=== PATIENT | female | born 1980 | race Caucasian/White ===

== ENCOUNTER 2017-07-26 10:52 | Emergency (ER) | payer MEDICAID ==
--- NOTE | 2017-07-26 12:08 | PD ---
HPI Chief Complaint spotting Date Seen: July 26, 2017 Time Seen: 12:01 Travel History International Travel<30 Days: No Contact w/Intl Traveler<30Days: No Known Affected Area: No History of Present Illness HPI Pt is a 36y/o @ 17.4wks. She has PNC in [place]. She states that she has had recent spotting (pink) and sex on . She also had spotting earlier in her and she was told it would likely recur. Pt has some cramping and a h/o SAB x2 and was concerned. +FM. Weeks Gestation: 17 Para: 1 : 5 History Past Medical History Medical History: Denies Significant Hx Obstetric History Obstetric History SAB x2 (1st TM) TAB x1 CS x1 (failure to progress) Past Surgical History Narrative Surgical CS (2010) inguinal hernia repair (age 2) Family History Family History: Negative Social History Alcohol Use: No Tobacco Use: No Substance Abuse: No Allergies-Medications Narrative Medication PNVs Review of Systems Except as stated in HPI: all other systems reviewed are Neg Physical Exam Narrative General: well developed, well nourished, no acute distress HEENT: normocephalic atraumatic, extraocular movements intact, neck supple Abdomen: soft, gravid, nontender, nondistended Uterus: fundus _ Extremities: full range of motion Skin: normal coloration, no rashes, no suspicious skin lesions noted Neurologic: cranial nerves 2-12 grossly intact, normal muscle tone, normal gait Psychiatric: normal mood and affect, appropriate Bedside US: sIUP, breech, +FM/FCA, posterior placenta ?low lying, no discernible cervix seen FHTs: present [place]: quiet Cvx: fingertip/80/-3, soft, posterior; brown watery blood on glove with small clot (1cm) Data Data Vital Signs Reviewed: Yes Orders Orders Vital Signs (Adult) .ON ADMISSION (07/26/17 12:00) ^ Labor Status (07/26/17 12:00) Heart (07/26/17 12:00) Urinalysis - C+S If Indicated (07/26/17 12:00) Us Pelvis Preg W Transvaginal (07/26/17 ) MDM Plan 36y/o @ 17.4wks with spotting, h/o CSx1, h/o SAB x2, h/o TAB x1, AMA. -- bedside US without evidence of previa -- cvx exam with concerns for insufficiency -- UA with +blood and +LE (no nitrites) Dispo: TVUS ordered; consider cerclage pending results Diagnosis Diagnosis: Primary Impression: 17 weeks gestation of Additional Impressions: Vaginal bleeding in patient at less than 20 weeks gestation Cervical insufficiency during in second trimester, antepartum History of section AMA (advanced maternal age) multigravida 35+ Fredis Hernandez MD July 26, 2017 12:08
[2017-07-26 12:21] LABS: BACTERIA, URINE FEW /hpf; BILIRUBIN, URINE NEG (NEG); BLOOD, URINE MOD (NEG); GLUCOSE,URINE NEG (NEG); KETONE, URINE NEG (NEG); NITRITE,URINE NEG (NEG); SQUAMOUS EPITHELIAL CELL URINE 3 /hpf (0-5); URINE COLOR LIGHT-YELLOW (YELLW/STRAW); URINE LEUKOCYTE ESTERASE LARGE (NEG)
[2017-07-27] MEDS ORDERED: PREN29TA PO ×2 (16:01)
== END 2017-07-26 14:05 | disposition home or self-care (01) ==
LOC: HOBED 10:52
DX: O44.12 Complete placenta previa with hemorrhage, second trimester (principal); O34.32 Maternal care for cervical incompetence, second trimester; O09.522 Supervision of elderly multigravida, second trimester; Z3A.17 17 weeks gestation of pregnancy
CPT/HCPCS: 76805; 76815; 81001; 87086

== ENCOUNTER 2017-07-27 14:46 | Observation (INO) | payer MEDICAID ==
[~2017-07-27] VITALS: Ht 177.8 cm; Wt 63.5 kg
--- NOTE | 2017-07-27 15:31 | HHI.HP ---
History & Physical H&P OB ED Note (Detail) Patient Name: Yossi Dwyer Unit Number: [id number] Date of : 1980 Patient Status: Registered Emergency Room Attending Doctor: Fredis Hernandez MD HPI Chief Complaint spotting Date Seen: July 27, 2017 Time Seen: 1524 Travel History International Travel<30 Days: No Contact w/Intl Traveler<30Days: No Known Affected Area: No History of Present Illness HPI Pt is a 36y/o @ 17.4wksPCS . She has PNC in [place]. She she was here yesterday for spotting and was evaluated by Dr. Hernandez was found to have a transvaginal ultrasound showing placenta previa but the cervical length was 5 cm and she has no history of cervical insufficiency or second trimester loss. She was discharged yesterday to bedrest at home she did that because she got up today to just normal activity for a little while and noticed a gush of blood. She also had spotting earlier in her and she was told it would likely recur. Pt has some cramping and a h/o SAB x2 and was concerned. +FM. Weeks Gestation: 17 Para: 1 : 5 History Past Medical History Medical History: Denies Significant Hx Obstetric History Obstetric History SAB x2 (1st TM) TAB x1 CS x1 (failure to progress) Past Surgical History Narrative Surgical CS (2010) inguinal hernia repair (age 2) Family History Family History: Negative Social History Alcohol Use: No Tobacco Use: No Substance Abuse: No Allergies-Medications Narrative Medication PNVs Review of Systems Except as stated in HPI: all other systems reviewed are Neg Physical Exam Narrative General: well developed, well nourished, no acute distress HEENT: normocephalic atraumatic, extraocular movements intact, neck supple Abdomen: soft, gravid, nontender, nondistended Uterus: fundus _ Extremities: full range of motion Skin: normal coloration, no rashes, no suspicious skin lesions noted Neurologic: cranial nerves 2-12 grossly intact, normal muscle tone, normal gait Psychiatric: normal mood and affect, appropriate FHTs: present [place]: quiet Cvx: Closed, uneffaced with small amount of dark blood oozing from the external loss and there is a small amount of dark red blood in the posterior fornix of vagina Data Data Vital Signs Reviewed: Yes Orders Orders Vital Signs (Adult) .ON ADMISSION (07/26/17 12:00) ^ Labor Status (07/26/17 12:00) Heart (07/26/17 12:00) Urinalysis - C+S If Indicated (07/26/17 12:00) Us Pelvis Preg W Transvaginal (07/26/17 ) MDM Plan 36y/o @ 17.4wks with 2 nd trimester bleeding with documented placenta previa done by transvaginal ultrasound yesterday, h/o CSx1, h/o SAB x2, h/o TAB x1, AMA. -- - -- UA with +blood and +LE (no nitrites) Diagnosis Diagnosis: Primary Impression: 17 weeks gestation of Additional Impressions: Vaginal bleeding in patient at less than 20 weeks gestation Placenta previa during in second trimester, antepartum History of section AMA (advanced maternal age) multigravida 35+ Impression-second trimester bleeding and 17 week intrauterine with placenta previa diagnosed yesterday on transvaginal ultrasound. That ultrasound showed cervical length of 5 cm Plan-admit to observation to observe for any heavy bleeding, check CBC, type and screen We will began a p.o. antibiotic for UTI seen on yesterday's UA . Antonio Benítez II, MD July 27, 2017 15:31
[2017-07-27] MEDS ORDERED: ALUMINUM/MAGNESIUM/SIMETH 30 ML CUP PO PRN (15:45)
[2017-07-27] MEDS ORDERED: ONDANSETRON ODT 4 MG TAB PO PRN (15:45)
[2017-07-27] MEDS ORDERED: SODIUM CHLORIDE 0.9% FLUSH 10 ML FLUSH IV FLUSH PRN (15:45)
[2017-07-27] MEDS ORDERED: PREN29TA PO ×2 (16:01)
[2017-07-27 16:50] LABS: AUTOMATED NEUTROPHIL # 15.1 TH/MM3 (1.8-7.7); BASOPHIL % 0.1 % (0.0-2.0); EOSINOPHIL # 0.1 TH/MM3 (0-0.4); EOSINOPHIL % 0.8 % (0.0-4.0); HEMATOCRIT 33.4 % (35.0-46.0); HEMOGLOBIN 11.2 GM/DL (11.6-15.3); LYMPH % 7.4 % (9.0-44.0); LYMPHOCYTE # 1.3 TH/MM3 (1.0-4.8); MEAN CELL VOLUME 88.2 FL (80.0-100.0); MEAN CORPUSCULAR HEMOGLOBIN 29.7 PG (27.0-34.0); MEAN CORPUSCULAR HGB CONC 33.6 % (32.0-36.0); MEAN PLATELET VOLUME 7.9 FL (7.0-11.0); MONO % 5.8 % (0.0-8.0); NEUT % 85.9 % (16.0-70.0); PLATELET COUNT 307 TH/MM3 (150-450); RED BLOOD COUNT 3.79 MIL/MM3 (4.00-5.30); RED CELL DISTRIBUTION WIDTH 13.4 % (11.6-17.2); WHITE BLOOD COUNT 17.6 TH/MM3 (4.0-11.0)
[2017-07-27] MEDS ORDERED: ACETAMINOPHEN 325 MG TAB PO PRN (19:45)
[2017-07-27] MEDS ORDERED: ZOLPIDEM TARTRATE 5 MG TAB PO PRN (21:00)
[2017-07-27] MEDS: SULFAMETHOXAZOLE-TRIMETHOPRIM DS 800-160 MG TAB PO SCH (21:37)
[2017-07-27] MEDS: FERROUS SULFATE 325 MG (65 MG ELEMENTAL IRON) TAB PO SCH (21:37)
[2017-07-27] MEDS: SODIUM CHLORIDE 0.9% FLUSH 10 ML FLUSH IV FLUSH SCH (21:38)
--- NOTE | 2017-07-28 08:56 | PD.OB.ANTE ---
Subjective Interval History Patient is a 36 yo F at 17/6 weeks gestation with placental previa and initial c/o of vaginal bleeding. Patient seen and examined this am. Reports improvement of vaginal bleeding, less the a period and slight vaginal bleeding note when she urinates. Patient also reports less frequency and intensity of cramps and contractions. Endorses movement. No CP, SOB, fever, or chills. Patient is tolerating po well. Antepartum ROS: Reports: Vaginal bleeding (improved, less than period), movement normal, Denies: New complaints, Loss of fluid, Contractions Objective Lab & Micro Results Test 07/27/17 15:52 07/27/17 16:00 White Blood Count 17.6 TH/MM3 Red Blood Count 3.79 MIL/MM3 Hemoglobin 11.2 GM/DL Hematocrit 33.4 % Mean Corpuscular Volume 88.2 FL Mean Corpuscular Hemoglobin 29.7 PG Mean Corpuscular Hemoglobin Concent 33.6 % Red Cell Distribution Width 13.4 % Platelet Count 307 TH/MM3 Mean Platelet Volume 7.9 FL Neutrophils (%) (Auto) 85.9 % Lymphocytes (%) (Auto) 7.4 % Monocytes (%) (Auto) 5.8 % Eosinophils (%) (Auto) 0.8 % Basophils (%) (Auto) 0.1 % Neutrophils # (Auto) 15.1 TH/MM3 Lymphocytes # (Auto) 1.3 TH/MM3 Monocytes # (Auto) 1.0 TH/MM3 Eosinophils # (Auto) 0.1 TH/MM3 Basophils # (Auto) 0.0 TH/MM3 CBC Comment DIFF FINAL Differential Comment Urine Opiates Screen NEG Urine Barbiturates Screen NEG Urine Amphetamines Screen NEG Urine Benzodiazepines Screen NEG Urine Cocaine Screen NEG Urine Cannabinoids Screen NEG Physical Exam GENERAL: Well-nourished, well-developed patient. CARDIOVASCULAR: Regular rate and rhythm without murmurs, gallops, or rubs. RESPIRATORY: Breath sounds equal bilaterally. No accessory muscle use. ABDOMEN/GI: Gravid, abdomen soft, non-tender. GENITOURINARY: External Genitalia: intact and normal in appearance Membranes: intact Uterine Contractions: minimal scattered contractions noted FHT's: 150 EXTREMITIES: No cyanosis or edema, non-tender, without signs of DVT. Assessment and Plan Problem List: (1) 17 weeks gestation of ICD Codes: Z3A.17 - 17 weeks gestation of (2) Placenta previa ICD Codes: O44.00 - Complete placenta previa NOS or without hemorrhage, unspecified trimester Qualifiers: Qualified Codes: O44.02 - Complete placenta previa nos or without hemorrhage , second trimester Assessment and Plan 36 year old at 17/6 weeks gestation with placenta previa that presented to OB triage with c/o on vaginal bleeding and cramping. Patient admitted for observation. IUP at 17 weeks gestation - AFVSS - f/u repeat cbc - improved vaginal bleeding, less than period - cervical length at 5cm -c/w UTI treatment with bactrim - plan to continue monitoring for cessation of vaginal bleeding DW Sandhya Bautista MD, R1 July 28, 2017 08:56
[2017-07-28] MEDS ORDERED: MULTIVIT/MIN/PREN/FOL AC/IRON PRENATAL TAB PO SCH (09:00)
[2017-07-28] MEDS: SODIUM CHLORIDE 0.9% FLUSH 10 ML FLUSH IV FLUSH SCH (09:00)
[2017-07-28] MEDS ORDERED: DOCUSATE SODIUM 100 MG CAP PO SCH (09:00)
[2017-07-28 09:19] LABS: AUTOMATED NEUTROPHIL # 15.1 TH/MM3 (1.8-7.7); EOSINOPHIL # 0.1 TH/MM3 (0-0.4); EOSINOPHIL % 0.5 % (0.0-4.0); HEMATOCRIT 29.2 % (35.0-46.0); HEMOGLOBIN 10.1 GM/DL (11.6-15.3); LYMPH % 6.7 % (9.0-44.0); LYMPHOCYTE # 1.2 TH/MM3 (1.0-4.8); MEAN CELL VOLUME 87.6 FL (80.0-100.0); MEAN CORPUSCULAR HEMOGLOBIN 30.3 PG (27.0-34.0); MEAN CORPUSCULAR HGB CONC 34.6 % (32.0-36.0); MEAN PLATELET VOLUME 7.6 FL (7.0-11.0); MONO % 4.7 % (0.0-8.0); MONOCYTE # 0.8 TH/MM3 (0-0.9); NEUT % 88.1 % (16.0-70.0); PLATELET COUNT 242 TH/MM3 (150-450); RED BLOOD COUNT 3.33 MIL/MM3 (4.00-5.30); RED CELL DISTRIBUTION WIDTH 13.6 % (11.6-17.2); WHITE BLOOD COUNT 17.1 TH/MM3 (4.0-11.0)
[2017-07-28] MEDS: SULFAMETHOXAZOLE-TRIMETHOPRIM DS 800-160 MG TAB PO SCH (10:30)
[2017-07-28] MEDS: FERROUS SULFATE 325 MG (65 MG ELEMENTAL IRON) TAB PO SCH (10:31)
--- NOTE | 2017-07-28 10:57 | HHI.DCPOC ---
Discharge Care Plan Diagnosis: (1) 17 weeks gestation of (2) Placenta previa Report Symptoms to Your Doctor -Temperature above 100.5 degrees -Redness, of incision or excessive or foul smelling drainage -Unusual pain or calf pain -Increased vaginal bleeding -Painful or difficulty urinating -Feelings of extreme sadness or anxiety after 2 weeks Goals to Promote Your Health * To prevent worsening of your condition and complications, follow up with an OB provider and maternal- medicine within one week after hospital discharge. Directions to Meet Your Goals Take your medications as prescribed Follow your dietary instruction Follow activity as directed Ensure plenty of rest for recovery Drink fluids for hydration Keep your appointments as scheduled Take your immunizations and boosters as scheduled If your symptoms worsen call your PCP, if no PCP go to Urgent Care Center or Emergency Room Smoking is Dangerous to Your Health. Avoid second hand smoke Call the 24-hour crisis hotline for domestic abuse at Lorenzo Cat MD R2 July 28, 2017 10:57
[2017-07-28] MEDS ORDERED: FERR325T20 PO (10:58)
[2017-07-28] MEDS ORDERED: MACR100C2 PO (10:58)
== END 2017-07-28 11:25 | disposition home or self-care (01) ==
LOC: HOBED 14:46 → H2EA 15:29
PROVIDERS: ADMIT Obstetrics & Gynecology Maternal & Fetal Medicine; ATTEND Obstetrics & Gynecology Maternal & Fetal Medicine
DX: O44.12 Complete placenta previa with hemorrhage, second trimester (principal); O23.42 Unspecified infection of urinary tract in pregnancy, second trimester; Z3A.17 17 weeks gestation of pregnancy
CPT/HCPCS: 99285; G0378; 80307; 85025; 86850; 86900; 86901; G0481

== ENCOUNTER 2017-07-28 17:23 | Inpatient (IN) | payer MEDICAID ==
[~2017-07-28] VITALS: Ht 177.8 cm; Wt 64.0 kg
[~2017-07-28 17:23] MED LIST: FERR325T20 PO; MACR100C2 PO; PREN29TA PO
[2017-07-28] MEDS ORDERED: OXYTOCIN 30 UNITS-500ML PREMIX 500 ML IV ONE (18:15)
[2017-07-28] MEDS ORDERED: CITRIC ACID-SODIUM CITRATE LIQ 30 ML UDC PO SCH (18:15)
[2017-07-28] MEDS ORDERED: LIDOCAINE HCL 1% 50 ML VIAL INFIL PRN (18:15)
[2017-07-28] MEDS ORDERED: HYDROmorphone HCL PF 1 MG/ML VIAL IV PUSH PRN (18:15)
[2017-07-28] MEDS ORDERED: ONDANSETRON HCL 4 MG/2 ML VIAL IV PUSH PRN (18:15)
[2017-07-28] MEDS ORDERED: LACTATED RINGER'S 1000 ML INJ 1,000 ML IV PRN (18:15)
[2017-07-28] MEDS ORDERED: LIDOCAINE HCL 1% 50 ML VIAL I-DERMAL PRN (18:15)
[2017-07-28] MEDS ORDERED: LACTATED RINGER'S 1000 ML INJ 1,000 ML IV SCH (18:15)
[2017-07-28] MEDS ORDERED: SODIUM CHLORID 0.9% 500 ML INJ 500 ML IV PRN (18:15)
[2017-07-28] MEDS ORDERED: MINERAL OIL 10 ML VIAL TOPICAL PRN (18:15)
[2017-07-28] MEDS ORDERED: SODIUM CHLOR 0.9% 1000 ML INJ 1,000 ML IV PRN (18:35)
--- NOTE | 2017-07-28 18:43 | HHI.HP ---
History & Physical H&P HPI Chief Complaint abdominal cramping/vb. Date Seen: July 28, 2017 Time Seen: 18:36 Travel History International Travel<30 Days: No Contact w/Intl Traveler<30Days: No Known Affected Area: No History of Present Illness HPI pt. is a 36 y/o @ 17 4/7 weeks present w/ c/o abdominal cramping, vb and lof. pt. d/c earlier in am 2/2 placenta previa. pt. states when got home began having cramping. pt. then noticed gush of fluid and heavier bleeding and very uncomfortable. on present, pt. w/ heavy cramping and bleeding. u/s show no fht and partial parts in vagina. bimanual exam show parts in vagina and sse show parts in vagina. Weeks Gestation: 17 Para: 1 : 5 History (Limited) History Past Medical History Medical History: Denies Significant Hx Obstetric History Obstetric History , sab x 2, tab x 1, x 1 Past Surgical History Surgical History: No Previous Surgery Family History Family History: Negative Social History Alcohol Use: No Tobacco Use: No Substance Abuse: No Allergies-Medications Allergies-Medications (Allergen,Severity, Reaction): Uncoded Allergies: no known allergy (Allergy, Unknown, 07/27/17) Home Meds Active Scripts Nitrofurantoin Monohydrate Macrocrystals (Macrobid) 100 Mg Cap, 100 MG PO BID for Infection, #10 CAP 0 Refills Prov:Lorenzo Cat MD R2 07/28/17 Ferrous Sulfate (Ferosul) 325 Mg (65 Mg Iron) Tablet, 325 MG PO BID, #60 TAB Prov:Lorenzo Cat MD R2 07/28/17 Reported Medications Vit-Iron Carbonyl ( Plus Iron 29-1 mg) 29 Mg Iron-1 Mg Tab, 1 TAB PO DAILY for Nutritional Supplement, #30 TAB 0 Refills 07/27/17 ROS Review of Systems Except as stated in HPI: all other systems reviewed are Neg Physical Exam Physical Exam Narrative GENERAL: Well-nourished, well-developed patient. SKIN: Warm and dry. HEAD: Normocephalic and atraumatic. EYES: No scleral icterus. No injection or drainage. ENT: No nasal drainage noted. Mucous membranes pink. Airway patent. NECK: Supple, trachea midline. No JVD. CARDIOVASCULAR: Regular rate and rhythm without murmurs, gallops, or rubs. RESPIRATORY: Breath sounds equal bilaterally. No accessory muscle use. BREASTS: Bilateral exam showed no masses , no retractions, no nipple discharge. ABDOMEN/GI: Abdomen soft, non-tender, bowel sounds present, no rebound, no guarding Gravid GENITOURINARY: External Genitalia: intact and normal in appearance parts in vagina EXTREMITIES: No cyanosis or edema. BACK: Nontender without obvious deformity. No CVA tenderness. NEUROLOGICAL: Awake and alert. Motor and sensory grossly within normal limits. Five out of 5 muscle strength in all muscle groups. Normal speech. Data Data Data Vital Signs Reviewed: Yes Orders Orders Ob (2e) Additional Admit Info (07/28/17 18:14) Admit To Inpatient (07/28/17 ) Code Status (07/28/17 18:15) Vital Signs (Adult) .Per protocol (07/28/17 18:15) Activity Oob Ad Re (07/28/17 18:15) Heart (07/28/17 18:15) Amnioinfusion (07/28/17 18:15) Urinary Catheter Management .ONCE (07/28/17 18:15) Diet Liquid (07/28/17 Dinner) Lactated Ringer's 1000 Ml Inj (Lr 1000 M (07/28/17 18:15) Lactated Ringer's 1000 Ml Inj (Lr 1000 M (07/28/17 18:15) Sodium Chlorid 0.9% 500 Ml Inj (Ns 500 M (07/28/17 18:15) Sodium Chlor 0.9% 1000 Ml Inj (Ns 1000 M (07/28/17 18:35) Lidocaine 1% Inj (50 Ml) (Xylocaine 1% I (07/28/17 18:15) Citric Acid-Sodium Citrate Liq (Bicitra (07/28/17 18:15) Ondansetron Inj (Zofran Inj) (07/28/17 18:15) Fentanyl Inj (Fentanyl Inj) (07/28/17 18:15) Fentanyl Inj (Fentanyl Inj) (07/28/17 18:15) Complete Blood Count With Diff (07/28/17 18:15) Hold Clot (07/28/17 18:15) Abo/Rh Blood Type (07/28/17 18:15) Urinalysis - C+S If Indicated (07/28/17 18:15) Drug Screen, Random Urine (07/28/17 18:15) Ob/Psych Drug Screen, Urine (07/28/17 18:15) Resp Oxygen Non Rebreathe Mask (07/28/17 ) ^ Epidural / Intrathecal Infus (07/28/17 18:15) Oxytocin 30 Units-500ml Premix (Pitocin (07/28/17 18:15) Lidocaine 1% Inj (50 Ml) (Xylocaine 1% I (07/28/17 18:15) Light Mineral Oil (Muri-Lube Oil) (07/28/17 18:15) Inpatient Certification (07/28/17 ) Hydromorphone Pf Inj (Dilaudid Pf Inj) (07/28/17 18:15) MDM MDM Medical Record Reviewed: Yes Plan pt. to be admitted w/ sab. pt. may have dilaudid for analgesia. expect . Diagnosis Diagnosis: Primary Impression: Placenta previa Additional Impressions: UTI (urinary tract infection) 17 weeks gestation of Spontaneous Mitchell Lund Jr., MD July 28, 2017 18:43
[2017-07-28] MEDS ORDERED: HYDROmorphone HCL PF 2 MG/ML VIAL ONE (18:50)
[2017-07-28] MEDS ORDERED: HYDROmorphone HCL PF 2 MG/ML VIAL IV PUSH PRN (19:00)
[2017-07-28] MEDS ORDERED: ONDANSETRON ODT 4 MG TAB PO PRN (19:15)
[2017-07-28 20:11] LABS: HEMATOCRIT 31.7 % (35.0-46.0); LYMPH % 1.9 % (9.0-44.0); LYMPHOCYTE # 0.5 TH/MM3 (1.0-4.8); MEAN CELL VOLUME 86.8 FL (80.0-100.0); MEAN CORPUSCULAR HGB CONC 34.6 % (32.0-36.0); MEAN PLATELET VOLUME 7.9 FL (7.0-11.0); MONO % 3.3 % (0.0-8.0); MONOCYTE # 0.8 TH/MM3 (0-0.9); NEUT % 94.8 % (16.0-70.0); PLATELET COUNT 283 TH/MM3 (150-450); RED BLOOD COUNT 3.65 MIL/MM3 (4.00-5.30); RED CELL DISTRIBUTION WIDTH 13.4 % (11.6-17.2); WHITE BLOOD COUNT 25.3 TH/MM3 (4.0-11.0)
[2017-07-28] MEDS ORDERED: OXYTOCIN 30 UNITS/NS 500ML PREMIX IV PRN (23:00)
--- NOTE | 2017-07-29 00:53 | PD.OB.DELI ---
Weeks gestation: 17 Pt started active labor?: Yes Medical induction of labor?: No Artificial rupture of membrane: Yes Artificial ROM date: July 28, 2017 Artifical ROM time: 19:00 Anesthesia: None Episiotomy: None Vaginal Delivery: Normal, Spontaneous Presentation: Other Nuchal Cord: None Delayed cord clamping (45 sec): No Delivery date: July 29, 2017 Delivery time: 00:41 One Minute : 0 Five Minute : 0 Weight: pending Placenta: Spontaneous delivery, Intact Estimated blood loss: 100cc Additional Information pt. present w/ advanced dilation and bulging mebranes. no fht found by doppler or u/s. pt. have arom and pitocin augmentation and have w/o diff. delivery at 17 4/7 weeks Mitchell Lund Jr., MD July 29, 2017 00:53
[2017-07-29] MEDS ORDERED: SODIUM CHLORIDE 0.9% FLUSH 10 ML FLUSH IV FLUSH PRN (01:00)
[2017-07-29] MEDS ORDERED: ALUMINUM/MAGNESIUM/SIMETH 30 ML CUP PO PRN (01:00)
[2017-07-29] MEDS ORDERED: ZOLPIDEM TARTRATE 5 MG TAB PO PRN (01:00)
[2017-07-29] MEDS ORDERED: ACETAMINOPHEN 325 MG TAB PO PRN (01:00)
[2017-07-29] MEDS ORDERED: BENZOCAINE 20% TOPICAL SPRAY 60 ML CAN TOPICAL PRN (01:00)
[2017-07-29] MEDS ORDERED: OXYTOCIN 30 UNITS-500ML PREMIX 500 ML IV SCH (01:00)
[2017-07-29] MEDS ORDERED: oxyCODONE/ACETAMINOPHEN 5 MG/325 MG TAB PO PRN ×2 (01:00)
[2017-07-29] MEDS ORDERED: DOCUSATE SODIUM 50 MG/SENNA 8.6 MG TAB PO PRN (01:00)
[2017-07-29] MEDS ORDERED: IBUPROFEN 800 MG TAB PO PRN (01:00)
[2017-07-29] MEDS ORDERED: ONDANSETRON ODT 4 MG TAB PO PRN (01:00)
[2017-07-29] MEDS ORDERED: WITCH HAZEL 50%/GLYCERIN 12.5% 40 PAD JAR TOPICAL PRN (01:00)
[2017-07-29 05:36] VITALS: RESP 18
[2017-07-29 05:49] LABS: AUTOMATED NEUTROPHIL # 17.6 TH/MM3 (1.8-7.7); BASOPHIL % 0.1 % (0.0-2.0); EOSINOPHIL % 0.1 % (0.0-4.0); HEMATOCRIT 25.6 % (35.0-46.0); HEMOGLOBIN 8.8 GM/DL (11.6-15.3); LYMPH % 6.3 % (9.0-44.0); LYMPHOCYTE # 1.2 TH/MM3 (1.0-4.8); MEAN CELL VOLUME 87.5 FL (80.0-100.0); MEAN CORPUSCULAR HEMOGLOBIN 30.1 PG (27.0-34.0); MEAN CORPUSCULAR HGB CONC 34.5 % (32.0-36.0); MEAN PLATELET VOLUME 7.4 FL (7.0-11.0); MONO % 5.5 % (0.0-8.0); MONOCYTE # 1.1 TH/MM3 (0-0.9); PLATELET COUNT 229 TH/MM3 (150-450); RED BLOOD COUNT 2.93 MIL/MM3 (4.00-5.30); WHITE BLOOD COUNT 19.9 TH/MM3 (4.0-11.0)
[2017-07-29] MEDS ORDERED: SODIUM CHLORIDE 0.9% FLUSH 10 ML FLUSH IV FLUSH SCH (09:00)
[2017-07-29] MEDS ORDERED: DIPHTH/TETANUS/ACEL PERTUSSIS (BOOSTER) 0.5 ML VIAL/PFS IM ONE (16:00)
[2017-07-29] MEDS ORDERED: MEASLES, MUMPS, RUBELLA VACCINE 0.5 ML VIAL SQ ONE (16:00)
== END 2017-07-29 07:34 | disposition home or self-care (01) | DRG 779 ==
LOC: HOBED 17:23 → H2EA 18:17
PROVIDERS: ADMIT Obstetrics & Gynecology; ATTEND Obstetrics & Gynecology
PROC: 10E0XZZ Delivery of Products of Conception, External Approach (ICD-10-PCS; principal; 2017-07-28)
PROC: 10907ZC Drainage of Amniotic Fluid, Therapeutic from Products of Conception, Via Natural or Artificial Opening (ICD-10-PCS; 2017-07-28)
DX: O03.9 Complete or unspecified spontaneous abortion without complication (principal); O44.02 Complete placenta previa NOS or without hemorrhage, second trimester; O23.42 Unspecified infection of urinary tract in pregnancy, second trimester; Z3A.17 17 weeks gestation of pregnancy; Z37.1 Single stillbirth
CPT/HCPCS: 76805; 80307; 81001; 85025; 86850; 86900; 86901; 87086; 88300; 88305; G0481; J1170; J2590